=== PATIENT | male | born 1965 | race Caucasian/White ===

== ENCOUNTER 2018-07-03 11:30 | Day surgery (SDC) | payer BC ==
[2018-07-03] MEDS ORDERED: COLLAGENASE 30 GM OINTMENT TOP ONE (12:05)
[2018-07-03 12:13] LABS: Absolute Lymphocytes (CBC) 1.3 K/uL (0.7-4.9); Absolute Monocytes 0.6 K/uL (0.1-1.3); Absolute Neutrophil 9.3 K/uL (1.8-8.0); Basophils % 0.5 % (0-1.3); Eosinophils % 1.7 % (0-4.4); Lymphocytes % 11.1 % (15.3-44.8); MPV 8.5 fL (7.6-11.3); Monocytes % 5.5 % (3.3-12.3); RBC Red Blood Cell Count 5.05 M/uL (4.33-5.43)
--- NOTE | 2018-07-03 12:41 | RAD REPORT ---
EXAM DESCRIPTION: Tracy Ohara And Lat (2 Views)07/03/2018 12:29 pm CLINICAL HISTORY: Preop for cyst removal from buttocks COMPARISON: None FINDINGS: The lungs appear clear of acute infiltrate. The heart is normal size A 40 x 14 millimeter opacity abuts the right mid lateral pleura IMPRESSION: A 40 x 14 millimeter opacity abuts the right mid lateral pleura which may represent chris gn pleural thickening or a mass. Another consideration is that it is related to the adjacent right sc apula. Followup chest film in 3 months could be obtained to assess stability. Alternatively, a CT [address] could be performed
--- NOTE | 2018-07-03 12:48 | EKG ---
Test Date: 2018-07-03 Test Time: 12:04:47 [employer]: [employer] MEASUREMENT RESULTS: Intervals: Rate: 106 RI: 142 QRSD: 82 QT: 332 QTc: 441 [place]: P: 68 RI: 142 QRS: 50 T: 63 INTERPRETIVE STATEMENTS: Sinus tachycardia Otherwise normal ECG No previous ECG available for comparison Electronically Signed On 07-03-18 12:47:16 [employer] by Jermaine Smith
[2018-07-03] MEDS ORDERED: CEFAZOLIN 1GM (PREMIX IV) 1 GM/50 ML BAG ONE (12:53)
[2018-07-03] MEDS ORDERED: NA CHLORIDE 0.9% 1,000 ML ONE (12:53)
[2018-07-03 13:01] LABS: Potassium 4.6 mmol/L (3.5-5.1)
[2018-07-03] MEDS ORDERED: INSULIN -REGULAR HUMAN 50 UNIT/0.5 ML ML ONE (13:12)
[2018-07-03] MEDS: HYDROMORPHONE HCL 1 MG/ML INJ ONE ×5 (13:46→14:06)
[2018-07-03] MEDS ORDERED: HYDROCODONE/APAP 7.5/325 MG TAB ONE (15:03)
--- NOTE | 2018-07-04 01:19 | OP ---
Date of Procedure: 07/03/2018 Surgeon: Wilmer Thyaer MD Preoperative Diagnosis: Right buttock abscess. Postoperative Diagnosis: Right buttock abscess. Procedure: Incision, drainage, and debridement of right buttock abscess. Estimated Blood Loss: Minimal. Specimen: Pus. Findings: As above. Anesthesia: MAC. Complications: None. Disposition: The patient tolerated the procedure in stable condition and taken to recovery in good g eneral condition. Description Of Procedure: The patient was brought to the OR. MAC anesthesia was begun. The patient was placed in prone position, prepped and draped in usual sterile fashion. Lidocaine 1% was infiltr ated locally. Then, 15-blade was used to make a 4-cm incision over the most fluctuant part of the ab scess, which was closed in the midline. Subcutaneous tissue was divided. Pus under pressure was raul cuated. Loculation was broken up. Necrotic tissue was debrided. Wound was irrigated. Bleeding was controlled with cautery. Wet-to-dry normal saline dressing change was applied. The patient tolerat ed the procedure in stable condition, taken to recovery in good general condition. Discharge Note: The patient will go to day surgery and home when stable. Disposition: Home. Condition: Stable. Discharge Instructions: Resume home meds and diet. Activity as tolerated. No heavy lifting. Wet-t o-dry normal saline dressing changes daily. We will teach family. The patient is on antibiotics kendra t Dr. Perez prescribed. Tylenol No. 3, 1 tablet p.o. q4 p.r.n. pain. Follow up in my office in 2 we eks. Call for appointment. DL/JOSEP Voice ID: [id number] Report ID: [id number]
== END 2018-07-03 16:07 | disposition home or self-care (01) ==
LOC: OR 11:30
PROVIDERS: ATTEND Surgery
PROC: 0J990ZZ Drainage of Buttock Subcutaneous Tissue and Fascia, Open Approach (ICD-10-PCS; principal; 2018-07-03 12:30)
DX: L02.31 Cutaneous abscess of buttock (principal); E11.9 Type 2 diabetes mellitus without complications; I10 Essential (primary) hypertension; E66.9 Obesity, unspecified; Z68.36 Body mass index [BMI] 36.0-36.9, adult
CPT/HCPCS: 36415; 71046; 80048; 82962; 85025; 87070; 87075; 87205; 93005; J0690; J1170; J3590; J7030